=== PATIENT | male | born 1985 | race Caucasian/White ===

== ENCOUNTER 2017-02-03 15:10 | Emergency (ER) | payer MEDICAID ==
[2017-02-03 15:25] VITALS: BP 132/85; PULSE 93; RESP 16; TEMP 97.5; O2SAT 99
--- NOTE | 2017-02-03 16:18 | C.PDOC ---
History Of Present Illness 40 year old male complains of swelling and pain to the right ankle after twisting his ankle a week prior. Patient reports he had his ankle checked after the incident with a negative XRay result. However, patient states twisted his ankle again yesterday at work with pain. Denies weakness, numbness, trauma, or any other complaints. Time Seen by Provider: 02/03/17 15:30 Chief Complaint (Nursing): Lower Extremity Problem/Injury History Per: Patient History/Exam Limitations: no limitations Onset/Duration Of Symptoms: Days (a week) Current Symptoms Are (Timing): Still Present Severity: Mild Recent travel outside of the [place]: No Additional History Per: Patient - Ankle/Foot Description Of Injury: Twisted Past Medical History Reviewed: Historical Data, Nursing Documentation, Vital Signs Vital Signs: Last Vital Signs Temp 97.5 F L 02/03/17 15:24 Pulse 93 H 02/03/17 15:24 Resp 16 02/03/17 15:24 BP 132/85 02/03/17 15:24 Pulse Ox 99 02/03/17 17:23 - Medical History PMH: No Chronic Diseases Surgical History: No Surg Hx Family History: States: Unknown Family Hx - Social History Hx Tobacco Use: Yes Hx Alcohol Use: Yes Hx Substance Use: No - Immunization History Hx Tetanus Toxoid Vaccination: No Hx Influenza Vaccination: No Hx Pneumococcal Vaccination: No Review Of Systems Musculoskeletal: Positive for: Foot Pain (Right ankle pain) Neurological: Negative for: Weakness, Numbness Physical Exam - Physical Exam Appears: Non-toxic, No Acute Distress Skin: Warm, Dry Head: Atraumatic, Normacephalic Eye(s): bilateral: Normal Inspection, EOMI Neck: Normal ROM Chest: Symmetrical Extremity: Tenderness (Right lateral ankle), No Calf Tenderness, Capillary Refill (<2secs), No Deformity, Swelling (Right lateral ankle) Pulses: Left Dorsalis Pedis: Normal, Right Dorsalis Pedis: Normal Neurological/Psych: Oriented x3, Normal Speech, Normal Motor, Normal Sensation Gait: Steady ED Course And Treatment O2 Sat by Pulse Oximetry: 99 (RA) Pulse Ox Interpretation: Normal Medical Decision Making Medical Decision Making: Impression: * Swelling and pain to the right ankle for a week. Plan: * XRAY right ankle Progress, Reassess and Dispo: Xray reviewed by me showing soft tissue swelling, no fracture or dislocation. Ankle air cast splint applied by CP and checked by me. Crutches with proper instruction given. Patient is in no acute distress at this time. Patient is without weakness or numbness. Recommend rest ice, elevation and NSAID. Patient was advised to follow up with ortho for further further evaluation and to return if symptoms worsens. Disposition Counseled Patient/Family Regarding: Studies Performed, Diagnosis, Need For Followup, Rx Given - Disposition Referrals: Podiatry Clinic [Outside] Disposition: HOME/ ROUTINE Disposition Time: 16:17 Condition: STABLE Additional Instructions: Your xray was normal, no fracture. Please apply ice to area 15 minutes three times a day. Take Motrin as needed for pain every 6 hours, with food to not upset stomach. Follow up with orthopedic if pain persists over one week. Prescriptions: Ibuprofen [Motrin] 600 mg PO Q8 #30 tab Instructions: Ankle Sprain (ED) Forms: [employer] ([place]ian), Work Excuse - POA Present On Arrival: None - Clinical Impression Clinical Impression: Ankle sprain - Scribe Statement The provider has reviewed the documentation as recorded by the Scribjonna dao All medical record entries made by the Scribe were at my direction and personally dictated by me. I have reviewed the chart and agree that the record accurately reflects my personal performance of the history, physical exam, medical decision making, and the department course for this patient. I have also personally directed, reviewed, and agree with the discharge instructions and disposition.
--- NOTE | 2017-02-03 16:42 | RAD ---
PROCEDURE: Right Ankle Radiographs. HISTORY: pain and swelling right ankle COMPARISON: None FINDINGS: BONES: Normal. No fracture. JOINTS: Normal. No osteoarthritis. Ankle mortise maintained. Talar dome intact SOFT TISSUES: Moderate lateral malleolar soft tissue edema is appreciated with extension anteriorly as well as posteriorly appear OTHER FINDINGS: None. IMPRESSION: No acute fracture or dislocation right ankle. Soft tissue edema is identified as discussed above.
== END 2017-02-03 16:45 | disposition home or self-care (01) ==
LOC: C.ER 15:10
DX: S93.401A Sprain of unspecified ligament of right ankle, initial encounter (principal); X58.XXXA Exposure to other specified factors, initial encounter; Y92.89 Other specified places as the place of occurrence of the external cause; Y99.0 Civilian activity done for income or pay